=== PATIENT | female | born 1945 | race Caucasian/White ===

== ENCOUNTER 2017-06-17 20:04 | Observation (INO) | payer MEDICARE, MEDICAID ==
[~2017-06-17] VITALS: Ht 157.5 cm; Wt 98.9 kg
[2017-06-17 21:24] LABS: BASOPHILS % 0.7 % (0.0-2.0); EOSINOPHILS % 4.6 % (0.0-5.0); HEMATOCRIT. 33.5 % (36.0-48.0); HEMOGLOBIN. 10.7 g/dL (12.0-16.0); LYMPHOCYTES % 27.5 % (20.0-50.0); MEAN CORPUSCULAR VOLUME 77.8 fL (81.0-99.0); MEAN PLATELET VOLUME 6.5 fl (7.4-10.4); MONOCYTES % 13.2 % (2.0-8.0); PLATELET 339 x1000/uL (130-400); RED CELL DISTRIBUTION WIDTH 15.3 % (11.6-14.6)
[2017-06-17 21:27] LABS: PARTIAL THROMBOPLASTIN TIME 25.9 sec (23.4-31.0)
[2017-06-17 21:36] LABS: TROPONIN I 0.03 ng/mL (0.00-0.04)
[2017-06-18] VITALS (9 sets, daily range): BP systolic 124–149; BP diastolic 53–96
[2017-06-18] MEDS ORDERED: ACETAMINOPHEN 325MG TABLET PO ONE (00:15)
[2017-06-18] MEDS ORDERED: VANCOMYCIN 1 G PREMIX 200 ML IV ONE (01:00)
[2017-06-18] MEDS ORDERED: HYDROCODONE/ACETAMINOPHEN 5/325MG TABLET PO PRN (03:30)
[2017-06-18] MEDS ORDERED: CEFTRIAXONE 1 G PREMIX 50 ML IV SCH (03:30)
[2017-06-18] MEDS ORDERED: ENOXAPARIN 40MG/0.4ML SYR SUBCUT SCH (09:00)
[2017-06-18] MEDS: ACETAMINOPHEN 325MG TABLET PO PRN ×2 (09:25→15:15)
[2017-06-18] MEDS ORDERED: DEXTROSE 50% WATER 50ML SYRINGE IV PRN (11:15)
[2017-06-18] MEDS: BLOOD SUGAR DIAGNOSTIC STRIP TEST SCH ×3 (12:20→21:00)
[2017-06-18] MEDS: INSULIN LISPRO 100 UNITS/ML SUBCUT SCH ×3 (12:50→21:00)
== END 2017-06-18 23:00 ==
LOC: ER 20:42 → 6EST 22:24 → INTOOBSV 22:24 → EDBEDREQSVC 22:25 → ENRESERV 23:20 → 6EST 06-18 03:51
PROVIDERS: ADMIT Internal Medicine; ATTEND Internal Medicine
DX: L03.115 Cellulitis of right lower limb (principal); L03.116 Cellulitis of left lower limb; I87.2 Venous insufficiency (chronic) (peripheral); E11.9 Type 2 diabetes mellitus without complications; F03.90 Unspecified dementia, unspecified severity, without behavioral disturbance, psychotic disturbance, mood disturbance, and anxiety; F20.9 Schizophrenia, unspecified; I11.0 Hypertensive heart disease with heart failure; G20 Parkinson's disease; G40.909 Epilepsy, unspecified, not intractable, without status epilepticus; E66.9 Obesity, unspecified; I50.9 Heart failure, unspecified
CPT/HCPCS: 36415; 71010; 80048; 82962; 83605; 83880; 84484; 85025; 85610; 85730; 87040; 93005; 96365; 99285; G0378; J3370; J1650